=== PATIENT | male | born 1970 | race Caucasian/White ===

== ENCOUNTER → 2016-08-24 | Outpatient (CLI) | payer OTHER | END | disposition home or self-care (01) | LOC: RAD 11:35 | DX: R07.89 Other chest pain (principal); R05 Cough; R06.02 Shortness of breath; F17.200 Nicotine dependence, unspecified, uncomplicated ==

== ENCOUNTER → 2016-08-30 | Outpatient (CLI) | payer OTHER ==
[~2016-08-30] MED LIST: ASPIRIN81 M1 PO; PRAVASTATIN SOD40 MG PO; VITAMIN D-32000 UNI1 PO
--- NOTE | ~2016-08-30 | ST ---
[place], [place] EXERCISE STRESS TEST REPORT NAME[id number] UNIT #: [id number] ROOM: DOCTOR: ANDREA PALMER MD BIRTHDATE: [birth year] DOS: 08/30/2016 INDICATIONS: Chest pain, precordial chest pain. PHARMACOLOGICAL STRESS TEST: The patient was given 0.4 mg of Lexiscan over 10 seconds followed by 2 minutes of recovery. Test was terminated due to completion. One performance baseline heart rate was 75, blood pressure 104/68, heart rate at 2 minutes was 93 and blood pressure 98/92. EKG RESPONSE: Baseline EKG and rhythm was normal sinus rhythm. Stress EKG, no ST changes. CLINICAL RESPONSE: The patient was lightheaded. INTERPRETATION: 1. Negative Lexiscan stress test. 2. Wait for Cardiol[employer] images for full report. ANDREA PALMER MD CM:STRESS:EXERCISE STRESS TEST REPORT [id number] ANDREA PALMER MD
== END | disposition home or self-care (01) ==
LOC: CARD 00:59
DX: R07.2 Precordial pain (principal); R07.89 Other chest pain